=== PATIENT | male | born 1970 | race American Indian/Alaskan Native ===

== ENCOUNTER 2017-06-11 15:07 | Emergency (ER) | payer MEDICAID ==
[2017-06-11 16:01] LABS: Anion Gap 18 mmol/L; Blood Urea Nitrogen 14 mg/dL (9-20); Calcium 8.7 mg/dL (8.4-10.2); Carbon Dioxide 26 mmol/L (22-30); Chloride 101.4 mmol/L (98-107); Glucose 105 mg/dL (75-100); Potassium 3.7 mmol/L (3.6-5.0); Sodium 142 mmol/L (137-145)
[2017-06-11 16:18] LABS: Basophils % (Auto) 0.8 % (0.0-1.8); Eosinophils % (Auto) 0.3 % (0.0-4.3); Hematocrit 41.8 % (35.5-45.6); Hemoglobin 14.2 gm/dl (11.8-15.2); Mean Corpuscular HGB Conc 34 % (32-34); Mean Corpuscular Hemoglobin 29 pg (28-32); Mean Corpuscular Volume 84 fl (84-94); Platelet Count 253 K/mm3 (140-440); Red Blood Count 4.99 M/mm3 (3.65-5.03); Red Cell Distribution Width 14.2 % (13.2-15.2); White Blood Count 7.2 K/mm3 (4.5-11.0)
--- NOTE | 2017-06-11 17:02 | Emergency Department Report ---
ED Neuro Deficit HPI - General Chief Complaint: Weakness Stated Complaint: HTN Time Seen by Provider: 06/11/17 16:33 Source: patient, EMS Mode of arrival: Stretcher Limitations: No Limitations - History of Present Illness Initial Comments: 46-year-old male past medical history hypertension presents with complaint of approximately 5 days of left-sided facial discomfort. On exam patient is awake alert and oriented 3 not in acute distress resting in bed comfortably. Patient states that approximately one week ago eating chips and then began to experience pain inside his left side mouth which he subsequently states radiated to her left side face. Patient states he went to [facility], [place] on Wednesday and was evaluated for numbness and tingling in his left side face. Patient states that he had normal blood work and a head CT. Patient states that today at home he had some headache and felt as though his blood pressure may have been elevated which is why he came to the hospital today. On exam patient is fully lucid and cooperative accompanied by 2 family members. Patient denies chest pain palpitations shortness of breath denies any slurred speech as per the patient's family he has not exhibited any signs of slurred speech or confusion. Patient denies any facial trauma denies any viral prodrome. States he is taking antibiotics and antivirals as per the recommendations of the physician that saw him at [facility], [place]. Based on the history patient is providing patient is being empirically treated for potential paresthesias that may be associated with shingles. Patient states he is currently on Valtrex. Denies any recent dental work, denies any facial trauma denies slurred speech denies upper or lower extremity paresthesias denies chest pain palpitations or shortness of breath. Onset/Timin -: week(s) Location: left face History of same: No Place: home Severity: moderate Improves With: none Worsens With: none On Anticoagulants: No Context: gradual onset Associated Symptoms: headaches Treatments Prior to Arrival: other (valtrex, prednisone) - Related Data Home Medications: Previous Rx's Medication Instructions Recorded Last Taken Type carBAMazepine [TEGretol] 200 mg PO Q12HR #56 tab 06/11/17 Unknown Rx Allergies/Adverse Reactions: Allergies Allergy/AdvReac Type Severity Reaction Status Date / Time No Known Allergies Allergy Unverified 06/11/17 15:20 ED Review of Systems ROS: Stated complaint: HTN Other details as noted in HPI Constitutional: denies: chills, fever Eyes: denies: eye pain, eye discharge, vision change ENT: as per HPI. denies: ear pain, throat pain Respiratory: no symptoms reported. denies: cough, shortness of breath, wheezing Cardiovascular: as per HPI. denies: chest pain, palpitations Endocrine: no symptoms reported Gastrointestinal: denies: abdominal pain, nausea, diarrhea Genitourinary: denies: urgency, dysuria Musculoskeletal: denies: back pain, joint swelling, arthralgia Skin: denies: rash, lesions Neurological: as per HPI, headache, paresthesias (left sided facial along v2 distribution along cheek). denies: weakness Psychiatric: denies: anxiety, depression Hematological/Lymphatic: denies: easy bleeding, easy bruising ED Past Medical Hx - Past Medical History Previous Medical History?: Yes Hx Hypertension: Yes Additional medical history: afib - Surgical History Past Surgical History?: No - Social History Smoking Status: Never Smoker Substance Use Type: None - Medications Home Medications: Home Medications Medication Instructions Recorded Confirmed Last Taken Type carBAMazepine [TEGretol] 200 mg PO Q12HR #56 tab 06/11/17 Unknown Rx ED Neuro Physical Exam - General Limitations: No Limitations General appearance: alert, in no apparent distress Suspected Stroke: No - Head Head exam: Present: atraumatic, normocephalic - Eye Eye exam: Present: normal appearance, PERRL, EOMI - Expanded Eye Exam Expanded Pupils: Regular, Round: Bilateral Sclera/Conjunctival: Normal Inspection: Bilateral Visual acuity (R) = 20/: 20 Visual acuity (L) = 20/: 20 - ENT ENT exam: Present: normal exam, mucous membranes moist - Neck Neck exam: Present: normal inspection, full ROM - Respiratory Respiratory exam: Present: normal lung sounds bilaterally. Absent: respiratory distress - Cardiovascular Cardiovascular Exam: Present: regular rate, normal rhythm. Absent: systolic murmur, diastolic murmur, rubs, gallop - GI/Abdominal GI/Abdominal exam: Present: soft, normal bowel sounds - Rectal Rectal exam: Present: deferred - Extremities Exam Extremities exam: Present: normal inspection - Back Exam Back exam: Present: normal inspection - Neurological Exam Neurological exam: Present: alert, oriented X3, CN II-XII intact - NIHSS Assessment Interval: Baseline 1a. Level of Consciousness: alert 1b. LOC Questions: answers correctly 1c. LOC Commands: performs tasks correctly 2. Best Gaze: normal 3. Visual: no visual loss 4. Facial Palsy: normal symmetrical movement 5b. Motor Arm Right: no drift 5a. Motor Arm Left: no drift 6a. Motor Leg Left: no drift 6b. Motor Leg Right: no drift 7. Limb Ataxia: absent 8. Sensory: normal 9. Best Language: no aphasia 10. Dysarthria: normal 11. Extinction/Inattention: no abnormality Total Score: 0 Stroke Severity: No Stroke Symptoms - Psychiatric Psychiatric exam: Present: normal affect, normal mood - Skin Skin exam: Present: warm, dry, intact, normal color. Absent: rash ED Course Vital Signs 06/11/17 06/11/17 06/11/17 15:17 15:21 15:31 Temperature Pulse Rate 73 86 Respiratory 12 13 Rate Blood Pressure 144/94 Blood Pressure [Right] O2 Sat by Pulse 99 100 98 Oximetry 06/11/17 06/11/17 06/11/17 15:33 15:41 15:51 Temperature Pulse Rate 70 77 Respiratory 20 12 16 Rate Blood Pressure 144/94 144/94 Blood Pressure [Right] O2 Sat by Pulse 100 98 98 Oximetry 06/11/17 06/11/17 06/11/17 16:00 16:11 16:21 Temperature Pulse Rate 73 83 69 Respiratory 13 17 12 Rate Blood Pressure 155/92 144/94 144/94 Blood Pressure [Right] O2 Sat by Pulse 96 95 97 Oximetry 06/11/17 06/11/17 06/11/17 16:30 16:40 16:51 Temperature Pulse Rate 73 84 74 Respiratory 9 L 19 12 Rate Blood Pressure 149/97 146/87 149/90 Blood Pressure [Right] O2 Sat by Pulse 99 100 Oximetry 06/11/17 06/11/17 06/11/17 17:00 17:11 17:21 Temperature Pulse Rate 70 71 92 H Respiratory 19 13 16 Rate Blood Pressure 149/94 149/94 149/94 Blood Pressure [Right] O2 Sat by Pulse 99 99 98 Oximetry 06/11/17 06/11/17 06/11/17 17:30 17:47 17:51 Temperature Pulse Rate 69 69 73 Respiratory 19 12 10 L Rate Blood Pressure 145/91 145/91 145/91 Blood Pressure [Right] O2 Sat by Pulse 100 99 99 Oximetry 06/11/17 06/11/17 06/11/17 18:00 18:11 18:21 Temperature Pulse Rate 61 77 68 Respiratory 17 12 18 Rate Blood Pressure 140/81 145/91 145/91 Blood Pressure [Right] O2 Sat by Pulse 98 99 97 Oximetry 06/11/17 06/11/17 06/11/17 18:31 18:41 18:51 Temperature Pulse Rate 74 81 Respiratory 18 17 14 Rate Blood Pressure 123/64 123/64 123/64 Blood Pressure [Right] O2 Sat by Pulse 98 97 97 Oximetry 06/11/17 06/11/17 06/11/17 19:00 19:11 19:21 Temperature Pulse Rate 72 74 74 Respiratory 16 9 L 10 L Rate Blood Pressure 118/70 118/70 118/70 Blood Pressure [Right] O2 Sat by Pulse 97 97 98 Oximetry 06/11/17 06/11/17 19:30 20:33 Temperature 98.6 F Pulse Rate 70 70 Respiratory 13 18 Rate Blood Pressure 143/90 Blood Pressure 157/102 [Right] O2 Sat by Pulse 100 100 Oximetry - Lab Data Result diagrams: 06/11/17 15:29 06/11/17 15:29 Lab Results 06/11/17 06/11/17 06/11/17 Range/Units 15:29 15:29 15:29 WBC 7.2 (4.5-11.0) K/mm3 RBC 4.99 (3.65-5.03) M/mm3 Hgb 14.2 (11.8-15.2) gm/dl Hct 41.8 (35.5-45.6) % MCV 84 (84-94) fl MCH 29 (28-32) pg MCHC 34 (32-34) % RDW 14.2 (13.2-15.2) % Plt Count 253 (140-440) K/mm3 Lymph % (Auto) 36.5 H (13.4-35.0) % [place] % (Auto) 9.3 H (0.0-7.3) % Eos % (Auto) 0.3 (0.0-4.3) % Baso % (Auto) 0.8 (0.0-1.8) % Lymph # 2.6 (1.2-5.4) K/mm3 [place] # 0.7 (0.0-0.8) K/mm3 Eos # 0.0 (0.0-0.4) K/mm3 Baso # 0.1 (0.0-0.1) K/mm3 Seg Neutrophils % 53.1 (40.0-70.0) % Seg Neutrophils # 3.8 (1.8-7.7) K/mm3 Sodium 142 (137-145) mmol/L Potassium 3.7 (3.6-5.0) mmol/L Chloride 101.4 (98-107) mmol/L Carbon Dioxide 26 (22-30) mmol/L Anion Gap 18 mmol/L BUN 14 (9-20) mg/dL Creatinine 1.4 (0.8-1.5) mg/dL Estimated GFR 55 ml/min BUN/Creatinine Ratio 10.00 % Glucose 105 H (75-100) mg/dL Calcium 8.7 (8.4-10.2) mg/dL Magnesium 1.90 (1.7-2.3) mg/dL Total Creatine Kinase 289 H (55-170) units/L Troponin T < 0.010 (0.00-0.029) ng/mL 06/11/17 Range/Units 18:01 WBC (4.5-11.0) K/mm3 RBC (3.65-5.03) M/mm3 Hgb (11.8-15.2) gm/dl Hct (35.5-45.6) % MCV (84-94) fl MCH (28-32) pg MCHC (32-34) % RDW (13.2-15.2) % Plt Count (140-440) K/mm3 Lymph % (Auto) (13.4-35.0) % [place] % (Auto) (0.0-7.3) % Eos % (Auto) (0.0-4.3) % Baso % (Auto) (0.0-1.8) % Lymph # (1.2-5.4) K/mm3 [place] # (0.0-0.8) K/mm3 Eos # (0.0-0.4) K/mm3 Baso # (0.0-0.1) K/mm3 Seg Neutrophils % (40.0-70.0) % Seg Neutrophils # (1.8-7.7) K/mm3 Sodium (137-145) mmol/L Potassium (3.6-5.0) mmol/L Chloride (98-107) mmol/L Carbon Dioxide (22-30) mmol/L Anion Gap mmol/L BUN (9-20) mg/dL Creatinine (0.8-1.5) mg/dL Estimated GFR ml/min BUN/Creatinine Ratio % Glucose (75-100) mg/dL Calcium (8.4-10.2) mg/dL Magnesium (1.7-2.3) mg/dL Total Creatine Kinase (55-170) units/L Troponin T < 0.010 (0.00-0.029) ng/mL - Medical Decision Making A/P: Clinical trigeminal neuralgia left side 1-patient has hyperesthesia of left face along V2 distribution on palpation. Patient has 20/20 vision with no complaints of blurry vision. Patient has slight intermittent headache but denies fevers chills or temporal reproducible tenderness on exam. On clinical exam patient has no clinical neurological deficits cranial nerves I through XII grossly intact upper extremity and lower extremity strength 5 out of 5 bilaterally, extraocular movements intact no slurred speech no facial droop patient does not meet NIH stroke scale criteria based on clinical exam and history. CT head within normal limits., Labs unremarkable troponin negative 2, EKG sinus rhythm 2-will add course of carbamazepine with slow up titration, I explained this to the patient 3-I advised patient to follow up with neurology and provided him with outpatient referral information. Patient asked me whether or not it is worth continuing his course of Valtrex and prednisone as prescribed by the physicians in the ED at [facility]. I advised them that it may be of some clinical utility but has no proven benefit if the etiology of his facial paresthesias associated with herpes virus and/or as a precursor to Flores's palsy. 4- patient to follow up with outpatient neurology and primary care - Thrombolytic Inclusion/Exclusion Thrombolytic Exclusion Criteria: Symptom Onset > 3 Hours Critical care attestation.: If time is entered above; I have spent that time in minutes in the direct care of this critically ill patient, excluding procedure time. ED Disposition Clinical Impression: Trigeminal neuralgia of left side of face, Perioral numbness Disposition: - TO HOME OR SELFCARE Is pt being admited?: No Does the pt Need Aspirin: No Condition: Stable Instructions: Carbamazepine (By mouth), Trigeminal Neuralgia (ED) Additional Instructions: Patient advised to return to the ED for any facial weakness slurred speech up her lower extremity weakness paralysis or deficits in movement. Patient advised to follow up with outpatient neurology, given information for neurologists available in the [facility] Prescriptions: carBAMazepine [TEGretol] 200 mg PO Q12HR #56 tab Referrals: NATHEN NAVARRO MD [Staff Physician] - 3-5 Days Forms: Accompanied Note, Work/School Release Form(ED)
[2017-06-11 17:32] LABS: Magnesium 1.9 mg/dL (1.7-2.3)
--- NOTE | 2017-06-11 19:41 | Cat Scan Report ---
FINAL REPORT EXAM: CT HEAD/BRAIN WO CON HISTORY: left sided facial paresthesias TECHNIQUE: CT imaging acquired through the head without intravenous contrast. Transaxial reformations are provided. PRIORS: None. FINDINGS: The ventricles, cisterns and sulci are normal. No intraparenchymal or extra-axial mass, hemorrhage, or mass effect. Sanchez and white-matter differentiation is within normal limits. Normal spherical shape of the globes. Paranasal sinuses and mastoid air cells are clear. No skull or facial fracture visualized. IMPRESSION: No acute intracranial abnormality.
[2017-06-11] MEDS ORDERED: MOTRIN PO ONE (19:45)
[2017-06-11] MEDS ORDERED: TYLENOL PO ONE (19:48)
[2017-06-11 20:35] VITALS: BP 157/102
== END 2017-06-11 20:33 | disposition home or self-care (01) ==
LOC: ED 15:07
DX: G50.0 Trigeminal neuralgia (principal); R20.0 Anesthesia of skin; I10 Essential (primary) hypertension; I48.91 Unspecified atrial fibrillation
CPT/HCPCS: 36415; 70450; 80048; 82550; 83735; 84484; 85025; 93005; 93010